=== PATIENT | female | born 1945 | race Hispanic/Latino ===

== ENCOUNTER 2018-10-05 14:06 | Outpatient (CLI) | payer MEDICARE ==
--- NOTE | 2018-10-05 14:25 | RAD ---
LEFT FOOT 3 VIEWS: History: left foot pain FINDINGS: Degenerative changes are present. A plantar calcaneal spur is noted. There is a nondisplaced fracture involving the proximal metaphysis of the proximal phalanx of the lit tle toe/fifth digit.
== END 2018-10-05 14:07 | disposition home or self-care (01) ==
LOC: RAD-FRANK 14:06
PROVIDERS: ATTEND Internal Medicine
DX: S99.922A Unspecified injury of left foot, initial encounter (principal)